=== PATIENT | male | born 1955 | race Caucasian/White ===

== ENCOUNTER → 2023-08-13 09:33 | Outpatient (REF) | payer MEDICARE, OTHER, SELFPAY ==
[2023-08-13 10:43] LABS: % Basophils 0.7 % (0-2); % Eosinophils 6.5 % (0-6); % Immature Granulocytes 0.2 % (0-0.5); % Lymphocytes 32.1 % (20.5-51.1); % Monocytes 4.6 % (1.7-9.3); % Neutrophils 55.9 % (42.2-75.2); Absolute Eosinophils 0.3 10^3/uL (0-0.7); Absolute Lymphocytes 1.4 10^3/uL (1.2-3.4); Absolute Monocytes 0.2 10^3/uL (0.1-0.6); Absolute Neutrophils 2.4 10^3/uL (1.4-6.5); Hemoglobin 13.2 g/dL (13.0-18.0); Mean Corp Hgb Conc. 34.7 g/dL (33.0-37.0); Mean Corpuscular Hgb 32.1 pg (27.0-31.0); Mean Corpuscular Volume 92.5 fL (80.0-94.0); Mean Platelet Volume 10.2 fL (7.4-10.4); Nucleated Red Blood Cells % 0 % (-); Platelet Count 158 10^3/uL (130-400); Red Blood Cell Count 4.11 10^6/uL (4.70-6.10); Red Cell Dist. Width 12.5 % (11.5-14.5); White Blood Cell Count 4.3 10^3/uL (4.8-10.8)
[2023-08-13 11:13] LABS: ALT (SGPT) 42 U/L (0-50); AST (SGOT) 31 U/L (17-59); Albumin 4.3 g/dl (3.5-5.0); Alkaline Phosphatase 64 U/L (38-126); Blood Urea Nitrogen 17 mg/dl (9-20); Calcium 9.9 mg/dl (8.4-10.2); Carbon Dioxide 29 mmol/L (22-30); Chloride 98 mmol/L (98-107); Glucose 299 mg/dl (70-99); HDL Cholesterol 40 mg/dl; LDL Cholesterol, Calculated 49 mg/dl; Potassium 5.1 mmol/L (3.5-5.1); Sodium 137 mmol/L (135-145); Total Cholesterol 134 mg/dl (50-199); Total Protein 7.2 g/dl (6.3-8.2); Triglyceride 225 mg/dl (10-149); Very Low Density Lipoprotein 45 mg/dl (0-30); eGFR > 60.00
[2023-08-13 11:28] LABS: Vitamin D, 25-OH*** 40.5 ng/mL (30-80)
[2023-08-13 11:44] LABS: TSH 1.82 uIU/ml (0.47-4.68)
[2023-08-13 12:40] LABS: Glycohemoglobin (HgbA1c) 9.6 % (4.0-5.6)
[2023-08-13 12:49] LABS: Microalbumin, Random Urine 3.3 mg/dl (0.6-1.7); Microalbumin/creatinine Ratio 12.4 mg/g
== END ==
LOC: REG 09:33
PROVIDERS: ATTENDING PHYSICIAN Family Medicine
DX: E11.65 Type 2 diabetes mellitus with hyperglycemia (principal); E11.9 Type 2 diabetes mellitus without complications; E78.00 Pure hypercholesterolemia, unspecified; R53.82 Chronic fatigue, unspecified; R26.2 Difficulty in walking, not elsewhere classified; R25.1 Tremor, unspecified; K58.9 Irritable bowel syndrome, unspecified; G62.9 Polyneuropathy, unspecified; Z79.899 Other long term (current) drug therapy; Z12.5 Encounter for screening for malignant neoplasm of prostate
CPT/HCPCS: 36415; 80053; 80061; 82043; 82306; 82570; 83036; 84443; 85025; G0103

== ENCOUNTER → 2023-11-23 08:50 | Outpatient (REF) | payer MEDICARE, OTHER, SELFPAY ==
[2023-11-23 10:09] LABS: % Basophils 0.8 % (0-2); % Eosinophils 5.9 % (0-6); % Immature Granulocytes 0.2 % (0-0.5); % Lymphocytes 26.2 % (20.5-51.1); % Monocytes 3.9 % (1.7-9.3); Absolute Eosinophils 0.3 10^3/uL (0-0.7); Absolute Lymphocytes 1.3 10^3/uL (1.2-3.4); Absolute Monocytes 0.2 10^3/uL (0.1-0.6); Absolute Neutrophils 3.1 10^3/uL (1.4-6.5); Hematocrit 38.5 % (39.0-52.0); Hemoglobin 13.2 g/dL (13.0-18.0); Mean Corp Hgb Conc. 34.3 g/dL (33.0-37.0); Mean Corpuscular Volume 93.2 fL (80.0-94.0); Mean Platelet Volume 10.5 fL (7.4-10.4); Nucleated Red Blood Cells % 0 % (-); Platelet Count 143 10^3/uL (130-400); Red Blood Cell Count 4.13 10^6/uL (4.70-6.10); Red Cell Dist. Width 12.7 % (11.5-14.5); White Blood Cell Count 4.9 10^3/uL (4.8-10.8)
[2023-11-23 10:29] LABS: Microalbumin, Random Urine 1.8 mg/dl (0.6-1.7); Microalbumin/creatinine Ratio 8.1 mg/g
[2023-11-23 10:33] LABS: INR 1.18; PT 14.8 Sec (11.4-14.6)
[2023-11-23 11:58] LABS: Glycohemoglobin (HgbA1c) 7.2 % (4.0-5.6)
[2023-11-23 12:46] LABS: AST (SGOT) 35 U/L (17-59); Albumin 4.8 g/dl (3.5-5.0); Alkaline Phosphatase 56 U/L (38-126); Blood Urea Nitrogen 19 mg/dl (9-20); Calcium 9.7 mg/dl (8.4-10.2); Carbon Dioxide 26 mmol/L (22-30); Chloride 103 mmol/L (98-107); Glucose 135 mg/dl (70-99); HDL Cholesterol 42 mg/dl; LDL Cholesterol, Calculated 33 mg/dl; Potassium 4.6 mmol/L (3.5-5.1); Sodium 143 mmol/L (135-145); Total Bilirubin 0.7 mg/dl (0.2-1.3); Total Cholesterol 110 mg/dl (50-199); Total Protein 7.8 g/dl (6.3-8.2); Triglyceride 176 mg/dl (10-149); Very Low Density Lipoprotein 35 mg/dl (0-30); eGFR > 60.00
[2023-11-23 13:23] LABS: ALT (SGPT) 45 U/L (0-50)
[2023-11-26 07:57] LABS: Viscosity Serum 1.12 cP (<=1.50)
== END ==
LOC: REG 08:50
PROVIDERS: ATTENDING PHYSICIAN Nurse Practitioner Family
DX: E11.29 Type 2 diabetes mellitus with other diabetic kidney complication (principal); E78.00 Pure hypercholesterolemia, unspecified; R80.9 Proteinuria, unspecified; Z01.89 Encounter for other specified special examinations
CPT/HCPCS: 36415; 80053; 80061; 82043; 82570; 83036; 85025; 85610; 85810

== ENCOUNTER → 2024-02-17 12:56 | Outpatient (REF) | payer MEDICARE, OTHER, SELFPAY | LOC: PAVMRI 12:56 | PROVIDERS: ATTENDING PHYSICIAN Nurse Practitioner Family; FAMILY PHYSICIAN Family Medicine | DX: M54.9 Dorsalgia, unspecified (principal); R10.9 Unspecified abdominal pain | CPT/HCPCS: 72158; 72197; A9575 ==

== ENCOUNTER 2024-04-11 05:10 | Inpatient (IN) | payer MEDICARE, OTHER, SELFPAY ==
[2024-04-10 19:54] VITALS: BP 104/65
[2024-04-10 20:12] LABS: % Basophils 0.2 % (0-2); % Eosinophils 2.5 % (0-6); % Immature Granulocytes 0.4 % (0-0.5); % Lymphocytes 10.4 % (20.5-51.1); % Monocytes 4.1 % (1.7-9.3); % Neutrophils 82.4 % (42.2-75.2); Absolute Eosinophils 0.3 10^3/uL (0-0.7); Absolute Immature Granulocytes 0.1 10^3/uL (0-0.05); Absolute Lymphocytes 1.4 10^3/uL (1.2-3.4); Absolute Monocytes 0.5 10^3/uL (0.1-0.6); Absolute Neutrophils 10.9 10^3/uL (1.4-6.5); Hematocrit 35.1 % (39.0-52.0); Hemoglobin 12.6 g/dL (13.0-18.0); Mean Corp Hgb Conc. 35.9 g/dL (33.0-37.0); Mean Corpuscular Hgb 32.2 pg (27.0-31.0); Mean Corpuscular Volume 89.8 fL (80.0-94.0); Mean Platelet Volume 9.7 fL (7.4-10.4); Nucleated Red Blood Cells % 0 % (-); Platelet Count 168 10^3/uL (130-400); Red Blood Cell Count 3.91 10^6/uL (4.70-6.10); Red Cell Dist. Width 12.9 % (11.5-14.5); White Blood Cell Count 13.2 10^3/uL (4.8-10.8)
[2024-04-10 20:25] LABS: Lactic Acid 1.3 mmol/L (0.7-2.0)
[2024-04-10 20:34] LABS: ALT (SGPT) 41 U/L (0-50); AST (SGOT) 23 U/L (17-59); Albumin 4.6 g/dl (3.5-5.0); Alkaline Phosphatase 55 U/L (38-126); Blood Urea Nitrogen 18 mg/dl (9-20); Calcium 9.6 mg/dl (8.4-10.2); Carbon Dioxide 31 mmol/L (22-30); Chloride 97 mmol/L (98-107); Glucose 148 mg/dl (70-99); Lipase 803 U/L (23-300); Potassium 4.3 mmol/L (3.5-5.1); Sodium 141 mmol/L (135-145); Total Bilirubin 0.9 mg/dl (0.2-1.3); Total Protein 7.4 g/dl (6.3-8.2); eGFR > 60.00
[2024-04-10 20:37] LABS: Troponin I < 0.012 ng/ml
--- NOTE | 2024-04-10 23:32 | ED.GENMED ---
History of Present Illness
General
Chief Complaint: Musculo-Skeletal Complaint
Time Seen by Provider: 04/10/24 23:32
History of Present Illness
History of Present Illness:
TIME OF INITIAL ENCOUNTER: 11:40 PM
HPI: The patient presents due to left-sided abdominal pain. It worsens when he gets up and moves around. He has no significant pain when he is he is resting here. He has no chest pain. He has no epigastric pain. He has had no vomiting and is
not a drinker.
EXAM:
GENERAL: Appears somewhat weak but in no distress
HEENT: Moist oral mucosa
CARDIOVASCULAR: No murmurs, normal heart rate, regular rhythm, No chest wall tenderness
PULMONARY: No respiratory distress, breath sounds are clear and equal
ABDOMEN: Soft with no peritoneal signs, there is severe tenderness on the left side tenderness
NEUROLOGIC: Excellent strength all extremities, no coordination deficits
PSYCHIATRIC: Appropriate mental status, normal insight and judgement
EXTREMITIES: Nontender, no edema, moves all extremities equally
SKIN: No rash, no lesions
NUMBER AND COMPLEXITY OF PROBLEMS ADDRESSED AT THE ENCOUNTER
� Chronic conditions affecting care: High blood pressure, hyperlipidemia, diverticular disease, diabetes
� Acute Exacerbation and/or Progression of Chronic Illness: This is an acute problem
� Differential Diagnosis includes: Diverticulitis, bowel obstruction, bowel perforation, oblique muscle strain
AMOUNT AND/OR COMPLEXITY OF DATA TO BE REVIEWED AND ANALYZED
� I performed an independent evaluation of and my interpretation is:
EKG:
CT: I personally reviewed CT imaging and agree with radiologist interpretation that there is acute diverticulitis of the descending colon with no evidence of abscess or microperforation
X-rays: Chest and rib x-ray unremarkable
Laboratory Studies: White count 13.2, hemoglobin 12.6, chemistries relatively unremarkable, troponin negative, lipase is 83
Other:
� Review of other/old records: The patient was seen in the emergency department in December 18 with diarrhea
� Clinical information was obtained by an independent historian: I spoke to at bedside
� Prescriptions/Medications Considered but not given:
� Further testing considered but not performed:
RISK OF COMPLICATIONS AND/OR MORBIDITY OR MORTALITY OF PATIENT MANAGEMENT
� Social determinants of health affecting care: Lives at home
� Discussion with other providers:
� Escalation of care including admission/observation vs risk of discharge considered: The patient has no significant pain at rest and appears very comfortable however only with palpation does he have rather significant
tenderness. Therefore, CT imaging obtained which confirms diverticulitis.
ANY OTHER UPDATES:
1:30 AM: The patient's CT confirms diverticulitis however the last 2 blood pressures have been low�IV fluids are started. Of note the patient states that he had constipation and then took magnesium citrate and then started having diarrhea. He is
on antihypertensive (lisinopril) and has increased amount of fluid noted in the intestinal lumen/has had diarrhea�likely had hypovolemic component as well.
2 AM: BP remains low however he is mentating well and is not ill-appearing. He wanted to go home however repeat blood pressure 81 systolic. I then checked a manual pressure and is confirmed to be around 80 systolic. Second liter of fluid has been
ordered. Will need to hold the lisinopril for now and I am starting IV antibiotics. CT imaging personally reviewed and shows a relatively short segment of involved bowel with no complication
Past History
Past History
ED Past Medical History: Hypercholesterolemia, NIDDM and Other (IBS)
ED Past Surgical History: Other (hernia)
Social History
Tobacco: Former smoker
Alcohol: Occasional
Living: with family
Phy Exam
Physical Exam
Physical Exam:
See HPI
Course
Orders/Labs/Results
Orders:
Orders
04/10/24 19:56
Electrocardiogram (*1) Urgent
Reason for Study: Abdominal Pain
CR Ribs-left 3 Vw W/pa Chest Urgent
Comment:
Reason For Exam: rib pain
04/10/24 19:57
EKG- Treatment ONCE
04/10/24 20:05
Complete Blood Count/With Diff Urgent
Comprehensive Metabolic Panel Urgent
Lactic Acid Urgent
Lipase Urgent
Troponin I Urgent
04/11/24 00:30
CT Abd/pelvis W Iv Cont Urgent
Reason For Exam: severe L abd tender; wbc 13
04/11/24 01:31
0.9% Sodium Chloride 1000 ml [Nss] 1,000 ml IV BOLUS
04/11/24 02:05
0.9% Sodium Chloride 1000 ml [Nss] 1,000 ml IV BOLUS
Piperacillin/Tazo 3.375 Gram [Zosyn] 3.375 gram in 50 ml IV NOW
Abnormal Lab Results
04/10/24
20:05
WBC 13.2 H 10^3/uL
(4.8-10.8)
RBC 3.91 L 10^6/uL
(4.70-6.10)
Hgb 12.6 L g/dL
(13.0-18.0)
Hct 35.1 L %
(39.0-52.0)
MCH 32.2 H pg
(27.0-31.0)
Abs Immat Gran (auto) 0.1 H 10^3/uL
(0-0.05)
Absolute Neuts (auto) 10.9 H 10^3/uL
(1.4-6.5)
Neutrophils % 82.4 H %
(42.2-75.2)
Lymphocytes % 10.4 L %
(20.5-51.1)
Chloride 97 L mmol/L
(98-107)
Carbon Dioxide 31 H mmol/L
(22-30)
Glucose 148 H mg/dl
(70-99)
Lipase 803 H U/L
(23-300)
04/10/24 20:05
10/14/24 20:05
Vital Signs
Initial and Last Documented VS:
Initial Vital Signs
Temp Pulse Resp BP Pulse Ox
98.3 F 93 20 104/65 99
04/10/24 19:54 04/10/24 19:54 04/10/24 19:54 04/10/24 19:54 04/10/24 19:54
Last Documented Vital Signs
Temp Pulse Resp BP Pulse Ox
98.3 F 93 20 81/54 98
04/10/24 19:54 04/10/24 19:54 04/10/24 19:54 04/11/24 01:58 04/11/24 02:00
*Critical Care Note
Total Time (30-74mins, 75-104mins- exclusive of procedures): Not Applicable
ED Attending Note
-
Portions of this chart may have been created with voice recognition software.� Occasional wrong word or��sound alike� substitutions may have occurred due to the inherent limitations of voice recognition software.
Discharge Plan
Departure
Patient Disposition: Admit
Date of Disposition: 04/11/24
Time of Disposition: 02:04
Presentation/result/management discussed w/ accepting MD/DO: Hospitalist
Discharge Problem:
Diverticulitis
Prescriptions:
No Action
glipizide 10 MG tablet
5 mg PO BID
sertraline 100 MG tablet
200 mg PO DAILY
trazodone 100 MG tablet
100 mg PO HS
lisinopril 5 MG tablet
5 mg PO DAILY
diazepam 10 MG tablet
5 mg PO BID
Metformin HCl
500 mg PO BID
atorvastatin 80 mg Tablet
80 mg PO DAILY
bupropion HCl 100 mg Tablet
100 mg PO DAILY
Referrals:
Torey Rodríguez DO [Family Provider] -
Interventions
Interventions:
*Risk Screen - Suicide Last Done: 04/11/24 00:01
*General Assessment Last Done: 04/10/24 19:54
*Neglect/Abuse Screening Last Done: 04/11/24 00:01
ED- Fall Risk Assessment Last Done: 04/11/24 00:08
*ED COVID-19 Vaccine History Last Done: 04/11/24 00:01
Discharge Date and Time
Print Language: THAI
[2024-04-11] VITALS (55 sets, daily range): BP systolic 71–126; BP diastolic 45–80; BMI 24.2; BMI 24.5
[2024-04-11] MEDS: NSS 1000 IV ×3 (01:32→03:10)
--- NOTE | 2024-04-11 01:35 | EDRN ---
Patients BP is trending down, Dr. Pérez at bedside with patient going over results and assessing, fluids started on patient, going to re-assess patient after fluids.
[2024-04-11] MEDS: ZOSYN 50 IV ×4 (02:08→20:20)
--- NOTE | 2024-04-11 03:11 | EDRN ---
After 2 liters of normal saline patients BP continues to be low, spoke provider, more fluids ordered and started on patient, patient is waiting on admission.
--- NOTE | 2024-04-11 04:00 | EDRN ---
3rd liter completed, patient's blood pressure remains the same, patient reports other then being tired feels ok, MD aware, waiting on hospitalist to see and admit patient. Patient with no symptoms with low BP, will continue to monitor closely.
--- NOTE | 2024-04-11 05:11 | EDRN ---
Hospitalist at bedside working on admission order
--- NOTE | 2024-04-11 05:26 | HPS.HSE ---
Family Physician
-
Family Physician: oTrey Rodríguez
Chief Complaint
-
Abdominal pain and diarrhea
History of Present Illness
This is a 69-year-old male with past medical history of diabetes, hypertension, hyperlipidemia, depression and anxiety who presents to the emergency department with approximately 1 day history of left lower quadrant abdominal pain and an episode of
watery stool.
Patient reports symptoms began after dinner over 24 hours ago. He sat down and noticed sharp pointed left lower quadrant pain. He managed the pain overnight. The following morning he felt constipated with some association with the pain. Later on
he did take mag citrate and significant to loose stools throughout the day but was tolerating some po. The pain continued afterwards. He denied having any fevers or chills. He denied any nausea or vomiting.
Patient denies any urinary symptoms. He has a history of a strangulated hernia status post release many many years ago. He denies abdominal distention or bloating.
In the emergency department initially the patient was afebrile, hematin blood pressure of 104/60 and nontachycardic. Soon after evaluation in the ED prior to discharge his blood pressure dropped to 80s systolic. He is maintained at 80 systolic for
a while. The patient who had no new symptoms. EKG showed normal sinus rhythm without any acute ST or T wave changes. His troponin was negative. Chest x-ray shows no acute infiltrates. He did have a CT scan of the abdomen pelvis which showed
acute descending colonic diverticulitis without any fluid collection abscess or microperforation. Patient had leukocytosis to 13,000 with normal hemoglobin and platelet count. His electrolytes were mostly normal. His troponin was negative. LFTs
were unremarkable. Lipase was elevated at 803.
The patient was given 3 L normal saline boluses to maintain his blood pressure. Currently blood pressures are 100/60.
Medical History
Past Medical History
Past Medical History: Reports HTN, Hypercholesterolemia, NIDDM and Psychiatric
Additional Past Medical History:
DES on CPAP
Past Surgical History: Reports Other
Additional Past Surgical History:
Ex lap for strangulated hernia, no resection, had manual reduction.
Social History
Tobacco: Non-smoker
Alcohol: None
Drug: None
Personal:
Living: With Family
Family History
Family History: Not pertinent
Allergies / Home Medications
Allergies reflects when Allergies were last updated in [employer].
Home Medications with original date entered in [employer]
Allergy/Medication List:
Allergies
Allergy/AdvReac Type Severity Reaction Status Date / Time
No Known Allergies Allergy Verified 04/10/24 19:53
Home Medications
diazepam 10 mg tablet 5 mg PO BID 05/12/17
glipizide 10 mg tablet 5 mg PO BID 05/12/17
lisinopril 5 mg tablet 5 mg PO DAILY 05/12/17
sertraline 100 mg tablet 200 mg PO DAILY 05/12/17
trazodone 100 mg tablet 100 mg PO HS 05/12/17
Metformin HCl 500 mg PO BID 11/21/17
atorvastatin 80 mg tablet 80 mg PO DAILY 04/11/24
bupropion HCl 100 mg tablet 100 mg PO DAILY 04/11/24
Review of Systems
-
History Source: Patient
Constitutional: Reports No Symptoms
EENT: Reports No Symptoms
Respiratory: Reports No Symptoms
Cardiac: Reports No Symptoms
Abdomen/GI: Reports Abdominal Pain and Diarrhea
: Reports No Symptoms
Musculoskeletal: Reports No Symptoms
Skin: Reports No Symptoms
Neurological: Reports No Symptoms
Hematologic/Lymphatic: Reports No Symptoms
Psych: Reports No Symptoms
Physical Exam
Vital Signs
Vital Signs
Temp Pulse Resp BP Pulse Ox
97.8 F 69 21 100/62 99
04/11/24 04:00 04/11/24 05:15 04/11/24 05:15 04/11/24 05:15 04/11/24 05:15
Physical Exam
General: Well Developed, Well Nourished and No Apparent Distress
HEENT: NormoCephalic, Anicteric, Moist mucous membranes and Atraumatic
Respiratory: Clear
Cardiac: S1/S2 and Regular Rhythm
Breast: Deferred by me
GI: Soft and Tender (Left lower quadrant tenderness to palpation, no rebound or guarding.)
Rectal: Deferred by Provider
Genito-urinary: Deferred by me
Musculoskeletal: No Clubbing, No Cyanosis and No Edema
Skin: Warm
Neuro: AO x 3
Hematologic/Lymphatic: No Lymphadenopathy
Psych: Calm
Laboratory Results
-
04/10/24 20:05
04/10/24 20:05
Laboratory Results
Lactic Acid 1.3 mmol/L (0.7-2.0) 04/10/24 20:05
Total Bilirubin 0.9 mg/dl (0.2-1.3) 04/10/24 20:05
AST 23 U/L (17-59) 04/10/24 20:05
ALT 41 U/L (0-50) 04/10/24 20:05
Alkaline Phosphatase 55 U/L (38-126) 04/10/24 20:05
Troponin I < 0.012 ng/ml 04/10/24 20:05
Lipase 803 U/L (23-300) H 04/10/24 20:05
Data Reviewed
-
Diagnostic Radiology: Image Personally Visualized and interpreted
CT Scan: Report Reviewed by me
Medical Tests (Nuc Med, Echo, EKG etc): Image Personally Visualized and interpreted
Lab Data: Labs Reviewed by me
Old Records: Reviewed
Impression/Plan
-
IMPRESSION:
Patient with history of hypertension, diabetes, hyperlipidemia DES on CPAP who presented to Emergency Department with 1 day history of left lower quadrant abdominal pain and was found to have uncomplicated acute diverticulitis of the descending
colon. While in the ED patient became hypotensive requiring fluid resuscitation with crystalloids. Currently BP stable at 100/60 and patient is asymptomatic. Due to a hypotensive episode the clinical picture is more complicated and patient cannot
be discharged since there is a possibility of bacteremia and sepsis. He is lactic acid was within normal limits.
PLAN:
Acute diverticulitis -by CT scan uncomplicated diverticulitis of the descending colon, by clinical exam diverticulitis associated with sepsis.
-Admit to IMU
-Status post 30 mL/kg IV fluids
-Zosyn
-Clear liquid for now, advance as tolerated
-Continue IV fluids as the patient may have been dehydrated over the last 24 hrs due to his laxative use.
HTN
-Holding lisinopril until patient has blood pressure is stabilized
DM II
-Hold metformin x 48 hours
-Holding glipizide
-Insulin sliding scale ACHS
DES
- CPAP HS
DVT PPX - lovenox sq
Code Status - Full Code
[2024-04-11] MEDS: LR 1000 IV ×2 (06:29→17:53)
--- NOTE | 2024-04-11 07:01 | EDRN ---
Patient ambulated to the restroom and back and bed, denies any dizziness and feels well, resting comfortably in bed.
[2024-04-11] MEDS: ZOLOFT 200 MG PO (08:31)
[2024-04-11] MEDS: LIPITOR 80 MG PO (08:31)
[2024-04-11] MEDS: WELLBUTRIN REGULAR RELEASE 100 MG PO (08:32)
[2024-04-11 09:10] LABS: Glucose - Point of Care 192 mg/dl (70-99)
[2024-04-11] MEDS: NOVOLOG FLEXPEN-LOW RESISTANCE 1 UNITS SC ×3 (09:34→18:28)
[2024-04-11 13:21] LABS: Glucose - Point of Care 173 mg/dl (70-99)
[2024-04-11] MEDS: LOVENOX 40 MG SC (17:58)
[2024-04-11 18:38] LABS: Glucose - Point of Care 164 mg/dl (70-99)
[2024-04-11] MEDS: DESYREL 100 MG PO (20:20)
[2024-04-11 21:56] LABS: Glucose - Point of Care 272 mg/dl (70-99)
--- NOTE | 2024-04-11 22:27 | PTCARENOTE ---
Caring for patient overnight. aaox3, NSR/SB on monitor. Remains RA. C/o pain in LLQ when palpitated. pt states he is feeling a lot better than when he first came in and his abdominal pain has gotten better. BP's & MAP's stable at the moment. IVF
&IVABX. Will continue to monitor.
[2024-04-12] VITALS (13 sets, daily range): BP systolic 90–128; BP diastolic 52–94; PULSE 38–59
[2024-04-12] MEDS: ZOSYN 50 IV ×4 (01:55→19:29)
[2024-04-12] MEDS: LR 1000 IV (03:45)
--- NOTE | 2024-04-12 04:07 | DOWNTIME ---
There was a [employer] Downtime on 04/12/2024 from 0100 to 04/12/2024 at 0355. Downtime documentation of patient's care, including medication administrations, has been reconciled in the electronic record per guidelines. Refer to the
patient's paper chart under the miscellaneous tab to see printed paper medication records and downtime forms.
[2024-04-12 05:55] LABS: Hematocrit 29.1 % (39.0-52.0); Hemoglobin 10.1 g/dL (13.0-18.0); Mean Corp Hgb Conc. 34.7 g/dL (33.0-37.0); Mean Corpuscular Hgb 32.1 pg (27.0-31.0); Mean Corpuscular Volume 92.4 fL (80.0-94.0); Mean Platelet Volume 10.9 fL (7.4-10.4); Platelet Count 103 10^3/uL (130-400); Red Blood Cell Count 3.15 10^6/uL (4.70-6.10); Red Cell Dist. Width 12.9 % (11.5-14.5); White Blood Cell Count 4.6 10^3/uL (4.8-10.8)
[2024-04-12 07:12] LABS: Blood Urea Nitrogen 8 mg/dl (9-20); Calcium 8.5 mg/dl (8.4-10.2); Carbon Dioxide 30 mmol/L (22-30); Chloride 103 mmol/L (98-107); Estimated Creatinine Clearance 109 ml/min; Glucose 166 mg/dl (70-99); Potassium 4.1 mmol/L (3.5-5.1); Sodium 140 mmol/L (135-145); eGFR > 60.00
[2024-04-12 08:21] LABS: Glucose - Point of Care 178 mg/dl (70-99)
--- NOTE | 2024-04-12 09:11 | W.PN.HOSP.TC ---
Today's Communication/Plan
-
resume diabetic medication
valium 2.5mg x1 in am
stop IVF
LR diet
Assessment / Plan
Assessment / Plan
CT a/p
CT findings compatible with diverticulitis involving the superior to mid aspect of the descending colon. No evidence for abscess or free intraperitoneal air.
Moderate amount of fluid within the colon, and please correlate with any symptoms of diarrhea.
Normal appearance of the appendix.
Contracted gallbladder with no evidence for gallstones or biliary ductal dilation.
Calcification involving the right coronary artery. Please correlate with symptoms of and risk factors for coronary artery disease, with further workup as clinically appropriate.
Acute left sided diverticulitis
Sepsis
-Patient had leukocytosis/hypotension at admission
-CT a/p showing left sided diverticulitis
-Got 30ml/kg fluid bolus and maintenance IVF after that, can stop today
-patient on zosyn, continue.
-advance diet to LR diet today
Hypotension
Essential HTN
-hold BP medication
-check ortho vitals
-continues to have some low BP reading
DM II
-can resume oral meds back today
-Insulin sliding scale ACHS
DES
-CPAP HS
Depression/axniety
Tinnitus
-patient was weaned off valium 5mg BID by psychiatry but needed to be put back on for sev tinnitus
-give 2.5mg valium in AM today and monitor patient
-will need to resume back to avoid withdrawal
DVT PPX - Lovenox sq
Code Status - Full Code
Transfer tele.
Anticipated Discharge: 24 - 48 hours
Subjective/Interval History
-
Date of Service: April 12, 2024
abdominal pain is better
no n/v
afebrile overnight
Objective Data
-
Labs:
Laboratory Results
04/12/24
05:07
WBC 4.6 L
Hgb 10.1 L
Hct 29.1 L
Plt Count 103 L D
Sodium 140
Potassium 4.1
Chloride 103
Carbon Dioxide 30
BUN 8 L
Creatinine 0.7
Glucose 166 H
Calcium 8.5
Vital Signs:
Vital Signs
Temp Pulse Resp BP Pulse Ox
97.9 F 49 14 90/66 97
04/12/24 07:40 04/12/24 06:00 04/12/24 06:00 04/12/24 06:00 04/12/24 06:00
Review of Systems
-
Respiratory: Reports No Symptoms
Cardiac: Reports No Symptoms
Abdomen/GI: Reports Abdominal Pain; Denies Nausea or Vomiting
Physical Exam
-
General: No Apparent Distress and Comfortable
HEENT: Negative Oxygen
Respiratory: Clear to Auscultation
Cardiac: Regular Rhythm and S1/S2; Negative Murmur or Rub
GI: Soft, Nondistended and Tender (Left flank abd pain)
Musculoskeletal: No Edema
Neuro: Awake, Alert, Oriented, No Motor Deficits and Nonfocal/Grossly Intact
Psych: Calm
[2024-04-12] MEDS: COLACE 100 MG PO ×2 (10:07→19:29)
[2024-04-12] MEDS: LIPITOR 80 MG PO (10:07)
[2024-04-12] MEDS: ZOLOFT 200 MG PO (10:07)
[2024-04-12] MEDS: NOVOLOG FLEXPEN-LOW RESISTANCE 1 UNITS SC (10:08)
[2024-04-12] MEDS: VALIUM 2.5 MG PO (10:12)
[2024-04-12 10:21] LABS: Glycohemoglobin (HgbA1c) 6.8 % (4.0-5.6)
[2024-04-12] MEDS: WELLBUTRIN REGULAR RELEASE 100 MG PO (10:46)
[2024-04-12 12:31] LABS: Glucose - Point of Care 208 mg/dl (70-99)
[2024-04-12] MEDS: NOVOLOG FLEXPEN-LOW RESISTANCE 2 UNITS SC ×2 (12:44→18:03)
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
[2024-04-12 17:25] LABS: Glucose - Point of Care 213 mg/dl (70-99)
[2024-04-12] MEDS: GLUCOTROL 5 MG PO (18:03)
[2024-04-12] MEDS: LOVENOX 40 MG SC (18:03)
[2024-04-12] MEDS: GLUCOPHAGE 500 MG PO (18:03)
--- NOTE | 2024-04-12 18:19 | PTCARENOTE ---
Rec'd pt this AM. resting comfortably. reports pain is greatly improved and tolerating diet today. remains sinus douglas when resting, asymptotic. resting comfortably.
[2024-04-12] MEDS: DESYREL 100 MG PO (19:29)
[2024-04-12] MEDS: VALIUM 5 MG PO (19:29)
[2024-04-12 22:51] LABS: Glucose - Point of Care 118 mg/dl (70-99)
[2024-04-13] VITALS: BP 104/61
[2024-04-13] MEDS: ZOSYN 50 IV ×2 (01:56→09:16)
[2024-04-13 04:30] LABS: Hematocrit 31.1 % (39.0-52.0); Mean Corp Hgb Conc. 35.4 g/dL (33.0-37.0); Mean Corpuscular Hgb 33.1 pg (27.0-31.0); Mean Corpuscular Volume 93.7 fL (80.0-94.0); Mean Platelet Volume 10.7 fL (7.4-10.4); Platelet Count 102 10^3/uL (130-400); Red Blood Cell Count 3.32 10^6/uL (4.70-6.10); Red Cell Dist. Width 12.7 % (11.5-14.5); White Blood Cell Count 4.8 10^3/uL (4.8-10.8)
[2024-04-13 04:49] LABS: Blood Urea Nitrogen 9 mg/dl (9-20); Calcium 8.9 mg/dl (8.4-10.2); Carbon Dioxide 28 mmol/L (22-30); Chloride 105 mmol/L (98-107); Estimated Creatinine Clearance 109 ml/min; Glucose 124 mg/dl (70-99); Potassium 4.1 mmol/L (3.5-5.1); Sodium 140 mmol/L (135-145); eGFR > 60.00
[2024-04-13 04:56] VITALS: BP 106/49
--- NOTE | 2024-04-13 04:57 | PTCARENOTE ---
NO acute events overnight. Denies pain. Remains on IV abx.
[2024-04-13 08:00] VITALS: BP 118/64
[2024-04-13 09:03] LABS: Glucose - Point of Care 160 mg/dl (70-99)
[2024-04-13] MEDS: COLACE 100 MG PO (09:16)
[2024-04-13] MEDS: VALIUM 5 MG PO (09:16)
[2024-04-13] MEDS: GLUCOTROL 5 MG PO (09:16)
[2024-04-13] MEDS: LIPITOR 80 MG PO (09:16)
[2024-04-13] MEDS: GLUCOPHAGE 500 MG PO (09:16)
[2024-04-13] MEDS: ZOLOFT 200 MG PO (09:16)
[2024-04-13] MEDS: WELLBUTRIN REGULAR RELEASE 100 MG PO (09:16)
[2024-04-13] MEDS: NOVOLOG FLEXPEN-LOW RESISTANCE 1 UNITS SC (09:17)
--- NOTE | 2024-04-13 09:21 | W.PN.HOSP.TC ---
Today's Communication/Plan
-
d/c home
Assessment / Plan
Assessment / Plan
CT a/p
CT findings compatible with diverticulitis involving the superior to mid aspect of the descending colon. No evidence for abscess or free intraperitoneal air.
Moderate amount of fluid within the colon, and please correlate with any symptoms of diarrhea.
Normal appearance of the appendix.
Contracted gallbladder with no evidence for gallstones or biliary ductal dilation.
Calcification involving the right coronary artery. Please correlate with symptoms of and risk factors for coronary artery disease, with further workup as clinically appropriate.
Acute left sided diverticulitis
Sepsis
-Patient had leukocytosis/hypotension at admission
-CT a/p showing left sided diverticulitis
-Got 30ml/kg fluid bolus and maintenance IVF after that, can stop today
-Patient tolerated a low residue diet without any issues
-Transition patient to oral Augmentin for 7 more days at discharge
-Advised patient to follow-up with gastroenterology in office for colonoscopy
Hypotension
Essential HTN
-Blood pressure improved, okay to resume lisinopril at discharge
DM II
-Discharge patient on home regimen of diabetic medication
DES
-CPAP HS
Depression/axniety
Tinnitus
-patient was weaned off valium 5mg BID by psychiatry but needed to be put back on for sev tinnitus
-Patient tolerating Valium 5 mg twice daily without any problem
DVT PPX - Lovenox sq
Code Status - Full Code
More than 30 minutes spent in discharge including
Final examination of the patient
Summarizing hospital stay
Instructions for continuing care to all relevant caregivers
Preparation of discharge records, prescriptions, and referral forms
Total time spent (in minutes): 38 mins
Anticipated Discharge: Today
Subjective/Interval History
-
Date of Service: April 13, 2024
Abdominal pain is significantly improved
No nausea vomiting
Continues to have some episodic bradycardia, asymptomatic
Objective Data
-
Labs:
Laboratory Results
04/13/24
04:02
WBC 4.8
Hgb 11.0 L
Hct 31.1 L
Plt Count 102 L
Sodium 140
Potassium 4.1
Chloride 105
Carbon Dioxide 28
BUN 9
Creatinine 0.7
Glucose 124 H
Calcium 8.9
Vital Signs:
Vital Signs
Temp Pulse Resp BP Pulse Ox
98.6 F 44 12 106/49 97
04/13/24 07:31 04/13/24 06:00 04/12/24 12:00 04/13/24 04:56 04/13/24 06:00
I&O
04/12/24 04/13/24 04/14/24
06:59 06:59 06:59
Intake Total 100 / 100
Output Total 650 / 650
Balance -550 / -550
Review of Systems
-
Respiratory: Reports No Symptoms
Cardiac: Reports No Symptoms
Abdomen/GI: Reports No Symptoms
Physical Exam
-
General: No Apparent Distress and Comfortable
HEENT: Negative Oxygen
Respiratory: Clear to Auscultation
Cardiac: Regular Rhythm and S1/S2; Negative Murmur or Rub
GI: Soft, Nontender and Nondistended
Musculoskeletal: No Edema
Neuro: Awake, Alert, Oriented, No Motor Deficits and Nonfocal/Grossly Intact
Psych: Calm
--- NOTE | 2024-04-13 09:23 | W.DCSUMMARY ---
Discharge Summary
Discharge Data
Date of Admission: 04/11/24
Date of Discharge: 04/13/24
-
Pending Results: No
Hospital Course
Discharging Physician : Dr David Garces
Disposition : Home
Primary care physician : Dr Torey rodríguez
Principal Discharge diagnosis :
Acute descending colon diverticulitis
Sinus bradycardia
Hypotension
Chronic Discharge diagnosis :
Depression/anxiety
Essential hypertension
Hyperlipidemia
Tinnitus
Hospital Course :
Patient is a 69-year-old male with no mentioned past medical history came to ER with new onset of left flank and lower abdominal pain. On evaluation in ER patient was diagnosed to have descending colon diverticulitis based on CT abdomen pelvis.
Patient was not showing any sign of systemic sepsis initially and was planned to be discharged to home on oral antibiotics. Unfortunately patient developed episodes of hypotension and required to be given IV fluid boluses. Patient was started on
IV antibiotics and was admitted to hospital for further monitoring. Over next 48 hours patient abdominal pain resolved completely. No new issues develop. Patient continues to have episodic hypotension although blood pressure significantly
improved, patient is being resumed on small dose of lisinopril at discharge. Patient also have sinus bradycardia with heart rate going to 40s although remains asymptomatic. Patient was advised to establish care with cardiology for possible
evaluation of need of outpatient rhythm monitoring.
Patient to follow-up with gastroenterology in office as well as may require repeat colonoscopy. Post medical stabilization patient was discharged to home at this point.
Important imaging findings :
CT abd/pelvis
CT findings compatible with diverticulitis involving the superior to mid aspect of the descending colon. No evidence for abscess or free intraperitoneal air.
Moderate amount of fluid within the colon, and please correlate with any symptoms of diarrhea.
Normal appearance of the appendix.
Contracted gallbladder with no evidence for gallstones or biliary ductal dilation.
Calcification involving the right coronary artery. Please correlate with symptoms of and risk factors for coronary artery disease, with further workup as clinically appropriate.
Procedure findings :
None
Discharge Plan
-
Patient Disposition: Home (Routine Discharge)
Discharge Diagnosis/Procedures: Acute descending colon diverticulitis, Sinus bradycardia
Condition: Fair
Diet: Low Residue
Activity: As tolerated
Driving Restrictions: As prior to admission
Bathing Restrictions: OK to Shower
Activity Restrictions/Additional Instructions:
Please establish care with cardiology of choice for further evaluation of sinus bradycardia.
Please follow-up with your regular drill foreman in 4 to 6 weeks for consideration of repeat colonoscopy.
Referrals:
Torey Rodríguez, DO [Family Provider] - in one week
Prescriptions:
New
amoxicillin-pot clavulanate 875-125 mg tablet
1 tab PO BID Qty: 14 0RF
Continued
sertraline 100 MG tablet
200 mg PO DAILY
trazodone 100 MG tablet
100 mg PO HS
lisinopril 5 MG tablet
5 mg PO DAILY
diazepam 10 MG tablet
5 mg PO BID
metformin 500 mg Tablet
500 mg PO BID Qty: 0
atorvastatin 80 mg Tablet
80 mg PO QPM
cyanocobalamin (vitamin B-12) 1,000 mcg Tablet
1,000 mcg PO DAILY
bupropion HCl 100 mg Tablet Sustained-Release 12 Hr
100 mg PO DAILY
glipizide 5 mg Tablet
5 mg PO BID
Discharge Orders:
Discharge Patient (As Directed); Ordered 04/13/24
Ordered By: David Garces
Discharge Date and Time
Print Language: AUSTRIAN
--- NOTE | 2024-04-13 11:55 | PTCARENOTE ---
Pt for d/c home. Declined Pna vaccine. IV and tele monitor removed. Instructions and med list reviewed with pt and . Pt ambulated off unit with .
== END 2024-04-13 12:12 | disposition home or self-care (01) | DRG 872 ==
LOC: IMU 05:10
PROVIDERS: Emergency Medicine; ADMITTING PHYSICIAN Internal Medicine; ATTENDING PHYSICIAN Hospitalist; EMERGENCY PHYSICIAN Emergency Medicine; FAMILY PHYSICIAN Family Medicine
DX: A41.9 Sepsis, unspecified organism (principal); K57.32 Diverticulitis of large intestine without perforation or abscess without bleeding; I10 Essential (primary) hypertension; E11.9 Type 2 diabetes mellitus without complications; G47.33 Obstructive sleep apnea (adult) (pediatric); I95.9 Hypotension, unspecified; F41.9 Anxiety disorder, unspecified; F32.A Depression, unspecified; E78.00 Pure hypercholesterolemia, unspecified
CPT/HCPCS: 71101; 74177; 80048; 80053; 82962; 83036; 83605; 83690; 84484; 85025; 85027; 93005; 94660; 96361; 96365; 99285; Q9967

== ENCOUNTER 2024-09-12 10:12 | Emergency (ER) | payer MEDICARE, OTHER, SELFPAY ==
[2024-09-12] VITALS (11 sets, daily range): BP systolic 99–124; BP diastolic 60–80; PULSE 60–86; BMI 23.3
--- NOTE | 2024-09-12 11:01 | ED.GENMED ---
History of Present Illness
<Adore Miranda PA-C - Last Filed: 09/13/24 14:04>
General
Chief Complaint: Fainting/Passed Out
Source: patient and spouse
Exam Limitations: none
Time Seen by Provider: 09/12/24 10:36
History of Present Illness
History of Present Illness:
69yoM with a history of hypertension, hyperlipidemia, type 2 diabetes presenting with his for evaluation after syncopal episode 2 days ago. Patient was standing on a ladder painting 2 days ago when he lost consciousness. Patient does not
recall any preceding symptoms or dizziness. He states the first that he remembers is waking up in mid air while falling. He believes he lost his balance because he has been having intermittent balance issues recently in which he stumbles while
walking. Patient fell approximately 3 feet onto his buttocks and subsequently hit his head. Since the fall, patient has not been feeling right. He states it feels like he is in the clouds and that his head is detached from his body. He denies
any chest pain, shortness of breath, vomiting, diarrhea, fevers, focal weakness, paresthesias.
Past History
<Adore Miranda PA-C - Last Filed: 09/13/24 14:04>
Past History
ED Past Medical History: Hypercholesterolemia, NIDDM and Other (IBS)
ED Past Surgical History: Other (hernia)
Social History
Tobacco: Former smoker
Alcohol: Occasional
Living: with family
Phy Exam
<Adore Miranda PA-C - Last Filed: 09/13/24 14:04>
General Physical Exam
General Presentation: well appearing and no apparent distress
General age: appears stated age
General Skin: warm and dry
General Habitus: normal
General Mental: alert
ENT Exam
ENT Exam: normocephalic
Eye Exam
Eye Exam: PERRL and EOMI
Cardiovascular Exam
Cardiovascular Exam: regular rate/rhythm and no murmur
Pulmonary Exam
Pulmonary Exam: lungs clear, no respiratory distress, no rales, no crackles and no rhonchi
Neurological Exam
Neurological Exam: alert and other (PERRL. EOMs intact. Normal finger to nose and heel to ramirez bilaterally. )
[place] Coma Scale
Eye Opening: Spontaneous
Verbal Response: Oriented
Motor Response: Obeys Commands
GCS Total Score: 15
Skin Exam
Skin Exam: normal color and warm/dry
Psychiatric Exam
Psychiatric Exam: normal mood/affect
<Jose Garcia PA-C - Last Filed: 09/12/24 18:57>
[place] Coma Scale
GCS Total Score: 15
Course
<Adore Miranda PA-C - Last Filed: 09/13/24 14:04>
Orders/Labs/Results
Orders:
Orders
09/12/24 10:16
ECG [Electrocardiogram (*1)] Urgent
Reason for Study: Syncope
EKG- Treatment ONCE
09/12/24 10:58
CT Cervical Spine W/o Iv Contr Urgent
Comment:
Reason For Exam: fall, neck pain
Cardiac Monitoring- Treatment ONCE
CR Sacrum/coccyx Min 2 View Urgent
Comment:
Reason For Exam: tailbone pain s/p fall
09/12/24 10:59
CT Head W/o Iv Contrast Urgent
Comment:
Reason For Exam: fall, head strike
09/12/24 11:04
Orthostatic VS- Treatment ONCE
09/12/24 11:22
Complete Blood Count/With Diff Urgent
Comprehensive Metabolic Panel Urgent
Troponin I Urgent
09/12/24 13:45
CARDIOLOGY CONSULT Urgent
Consulting Provider: Tino Villanueva
Was physician already notified: Yes
09/12/24 15:23
Echo 2D MMode Color/Doppler Urgent
Reason for Study: syncope
Abnormal Lab Results
09/12/24
11:22
WBC 3.6 L 10^3/uL
(4.8-10.8)
RBC 3.68 L 10^6/uL
(4.70-6.10)
Hgb 11.9 L g/dL
(13.0-18.0)
Hct 34.6 L %
(39.0-52.0)
MCH 32.3 H pg
(27.0-31.0)
Plt Count 127 L 10^3/uL
(130-400)
Absolute Lymphs (auto) 1.1 L 10^3/uL
(1.2-3.4)
Carbon Dioxide 32 H mmol/L
(22-30)
Glucose 228 H mg/dl
(70-99)
ALT 52 H U/L
(0-50)
09/12/24 11:22
09/12/24 11:22
Vital Signs
Initial and Last Documented VS:
Initial Vital Signs
Temp Pulse Resp BP Pulse Ox
97.4 F 74 16 116/80 99
09/12/24 10:13 09/12/24 10:13 09/12/24 10:13 09/12/24 10:13 09/12/24 10:13
Last Documented Vital Signs
Temp Pulse Resp BP Pulse Ox
98.3 F 68 14 124/67 98
09/12/24 18:22 09/12/24 18:22 09/12/24 18:22 09/12/24 18:22 09/12/24 18:22
Lelt;Jose Garcia PA-C - Last Filed: 09/12/24 18:57>
Orders/Labs/Results
Orders:
Orders
09/12/24 10:16
ECG [Electrocardiogram (*1)] Urgent
Reason for Study: Syncope
EKG- Treatment ONCE
09/12/24 10:58
CT Cervical Spine W/o Iv Contr Urgent
Comment:
Reason For Exam: fall, neck pain
Cardiac Monitoring- Treatment ONCE
CR Sacrum/coccyx Min 2 View Urgent
Comment:
Reason For Exam: tailbone pain s/p fall
09/12/24 10:59
CT Head W/o Iv Contrast Urgent
Comment:
Reason For Exam: fall, head strike
09/12/24 11:04
Orthostatic VS- Treatment ONCE
09/12/24 11:22
Complete Blood Count/With Diff Urgent
Comprehensive Metabolic Panel Urgent
Troponin I Urgent
09/12/24 13:45
CARDIOLOGY CONSULT Urgent
Consulting Provider: Tino Villanueva
Was physician already notified: Yes
09/12/24 15:23
Echo 2D MMode Color/Doppler Urgent
Reason for Study: syncope
Abnormal Lab Results
09/12/24
11:22
WBC 3.6 L 10^3/uL
(4.8-10.8)
RBC 3.68 L 10^6/uL
(4.70-6.10)
Hgb 11.9 L g/dL
(13.0-18.0)
Hct 34.6 L %
(39.0-52.0)
MCH 32.3 H pg
(27.0-31.0)
Plt Count 127 L 10^3/uL
(130-400)
Absolute Lymphs (auto) 1.1 L 10^3/uL
(1.2-3.4)
Carbon Dioxide 32 H mmol/L
(22-30)
Glucose 228 H mg/dl
(70-99)
ALT 52 H U/L
(0-50)
09/12/24 11:22
09/12/24 11:22
Vital Signs
Initial and Last Documented VS:
Initial Vital Signs
Temp Pulse Resp BP Pulse Ox
97.4 F 74 16 116/80 99
09/12/24 10:13 09/12/24 10:13 09/12/24 10:13 09/12/24 10:13 09/12/24 10:13
Last Documented Vital Signs
Temp Pulse Resp BP Pulse Ox
98.3 F 68 14 124/67 98
09/12/24 18:22 09/12/24 18:22 09/12/24 18:22 09/12/24 18:22 09/12/24 18:22
<Adore Miranda PA-C - Last Filed: 09/13/24 14:04>
MDM/Problems Addressed
Differential Diagnosis Includes:
69yoM here after a syncopal episode 2 days ago. Standing on a ladder when he passed out. Woke up mid fall and landed on buttocks. +Head strike. Not feeling right since then. No CP/SOB. VSS. He is well-appearing in no acute distress. No external
signs of head trauma on exam. Differential diagnosis includes but is not limited to: Cardiogenic syncope/arrhythmia, orthostatic hypotension, vasovagal episode, dehydration, concussion, intracranial hemorrhage
Initial ED plan: Check cardiac labs, EKG, CT head/cervical spine, and sacral x-rays. Will also check orthostatic vital signs.
Final assessment: Labs overall unremarkable. Hemoglobin stable. EKG shows sinus bradycardia with low voltage QRS. Troponin WNL. Imaging negative for traumatic injuries. Cardiology consulted and echocardiogram ordered. Patient signed out to Wang
aRdha LÓPEZ prior to echo results. Final disposition pending.
<Adore Miranda PA-C - Last Filed: 09/13/24 14:04>
*EKG
Interpreted by ED Provider?: Yes
EKG Intrepretation Date: 09/12/24
Heart Rate: 58
Rate: bradycardiac
Rhythm: sinus
[place]: normal axis
Interval: normal interval
QRS Pattern: low voltage
Ischemia: no ischemia
<Jose Garcia PA-C - Last Filed: 09/12/24 18:57>
*Critical Care Note
Total Time (30-74mins, 75-104mins- exclusive of procedures): Not Applicable
<Jose Garcia PA-C - Last Filed: 09/12/24 18:57>
Patient Management
Discussion with other providers: Addresser
Escalation/DeEscalation of care consider admission/obs:
5 PM: Patient was received in signout pending echocardiogram and cardiology consultation. Patient's echocardiogram without any significant emergent findings. Mild valvular disease noted. Seen by cardiology who feels patient can be treated as an
outpatient. 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 Patient aware of return precautions. Discussed nonemergent cervical spine findings and need for close outpatient
follow-up. Patient aware of return precautions to the ER.
ED Attending Note
<Adore Miranda PA-C - Last Filed: 09/13/24 14:04>
-
Portions of this chart may have been created with voice recognition software.� Occasional wrong word or��sound alike� substitutions may have occurred due to the inherent limitations of voice recognition software.
Discharge Plan
Departure
Patient Disposition: Home (Routine Discharge)
Date of Disposition: 09/12/24
Time of Disposition: 17:25
Patient with high blood pressure during this ER visit?: No
Discharge Problem:
Syncope, Degenerative disk disease
Instructions: Syncope (Fainting) (DC)
Prescriptions:
No Action
sertraline 100 MG tablet
200 mg PO DAILY
trazodone 100 MG tablet
100 mg PO HS
lisinopril 5 MG tablet
5 mg PO DAILY
diazepam 10 MG tablet
5 mg PO BID
metformin 500 mg Tablet
500 mg PO BID Qty: 0
atorvastatin 80 mg Tablet
80 mg PO QPM
cyanocobalamin (vitamin B-12) 1,000 mcg Tablet
1,000 mcg PO DAILY
bupropion HCl 100 mg Tablet Sustained-Release 12 Hr
100 mg PO DAILY
glipizide 5 mg Tablet
5 mg PO BID
amoxicillin-pot clavulanate 875-125 mg tablet
1 tab PO BID Qty: 14 0RF
Referrals:
Torey Rodríguez DO [Family Provider] -
Tino Villanueva MD [Active] - (Cardiology)
Interventions
Interventions:
*Risk Screen - Suicide Last Done: 09/12/24 11:18
*General Assessment Last Done: 09/12/24 11:14
*Neglect/Abuse Screening Last Done: 09/12/24 11:20
*ED- Fall Risk Assessment Last Done: 09/12/24 11:14
*ED COVID-19 Vaccine History Last Done: 09/12/24 11:14
*Nursing Disposition Last Done: 09/12/24 18:22
ED- Cardiac Assessment Last Done: 09/12/24 11:14
ED-Musculoskeletal Assessment Last Done: 09/12/24 11:14
ED- Neurological Assessment Last Done: 09/12/24 11:14
ED-Skin Assessment Last Done: 09/12/24 11:14
Discharge Date and Time
Discharge Date/Time: 09/12/24 18:10
Print Language: [id number]
[2024-09-12 11:31] LABS: % Basophils 0.8 % (0-2); % Eosinophils 4.5 % (0-6); % Immature Granulocytes 0.3 % (0-0.5); % Lymphocytes 30.7 % (20.5-51.1); % Monocytes 5.1 % (1.7-9.3); % Neutrophils 58.6 % (42.2-75.2); Absolute Eosinophils 0.2 10^3/uL (0-0.7); Absolute Lymphocytes 1.1 10^3/uL (1.2-3.4); Absolute Monocytes 0.2 10^3/uL (0.1-0.6); Absolute Neutrophils 2.1 10^3/uL (1.4-6.5); Hematocrit 34.6 % (39.0-52.0); Hemoglobin 11.9 g/dL (13.0-18.0); Mean Corp Hgb Conc. 34.4 g/dL (33.0-37.0); Mean Corpuscular Hgb 32.3 pg (27.0-31.0); Mean Platelet Volume 9.9 fL (7.4-10.4); Nucleated Red Blood Cells % 0 % (-); Platelet Count 127 10^3/uL (130-400); Red Blood Cell Count 3.68 10^6/uL (4.70-6.10); Red Cell Dist. Width 12.9 % (11.5-14.5); White Blood Cell Count 3.6 10^3/uL (4.8-10.8)
[2024-09-12 11:42] LABS: ALT (SGPT) 52 U/L (0-50); AST (SGOT) 30 U/L (17-59); Alkaline Phosphatase 48 U/L (38-126); Blood Urea Nitrogen 14 mg/dl (9-20); Calcium 9.3 mg/dl (8.4-10.2); Carbon Dioxide 32 mmol/L (22-30); Chloride 100 mmol/L (98-107); Estimated Creatinine Clearance 96 ml/min; Glucose 228 mg/dl (70-99); Potassium 4.3 mmol/L (3.5-5.1); Sodium 137 mmol/L (135-145); Total Bilirubin 0.9 mg/dl (0.2-1.3); Total Protein 6.6 g/dl (6.3-8.2); eGFR > 60.00
[2024-09-12 12:10] LABS: Troponin I < 0.012 ng/ml
--- NOTE | 2024-09-12 14:33 | CON.CAR ---
Consultation
Consultation Request
Date/Time Consultation Requested: 09/12/2024
Date/Time Consultation Performed: 09/12/2024, 1530
Requesting Provider: Adore Miranda PA-C
Performing Provider: ROSAS Segovia for Dr. Villanueva
Reason for Consultation: Syncope
Medical History
-
Chief Complaint: syncope
History of Present Illness:
69-year-old male with history of hypertension, hyperlipidemia, type 2 diabetes, diverticulitis, DES presented to ED today for evaluation of a syncopal episode 2 days ago. Patient was standing on a ladder painting when he lost consciousness,
remembers waking up as he was falling down off the ladder. He fell 2-3 feet onto his buttocks and subsequently hit his head. He has felt that his head is not right since the fall, and came to the ED today for evaluation. He denies feeling poorly
prior to the episode and denies any dizziness, lightheadedness, palpitations. He had a similar episode also while painting on a ladder about 6 months ago. He has had no other episodes of syncope. He reports he has not been as active recently
with walking and that he loses balance when walking but can catch himself. He has not had any falls.
Denies chest pain, shortness of breath, palpitations, lightheadedness, edema, PND, orthopnea.
denies history of PR/CAD/CAD/CVA
Does not have a nurse sane, reports having an echo and a stress test many years ago.
Past medical history:
Type 2 diabetes
Hypertension
Hyperlipidemia
Depression
anxiety
obstructive sleep apnea on CPAP
ED evaluation: Head CT: No acute intracranial hemorrhage or transcortical infarct, mild to moderate diffuse cerebral and cerebellar volume loss
EKG: Sinus bradycardia, low voltage, IVCD, no change compared to 04/10/2024 EKG
Labs:
Hemoglobin 11.9, BUN/creatinine 14/0.8, NA 137, K4.3, troponin less than 0.012
Past Medical History
Past Medical History: Other (As above)
Past Surgical History: Other (Hernia surgery)
Social History
Tobacco: Former Smoker (Quit in 1978)
Alcohol: Occasional (Rare, approximately 1 sixpack of beer per year)
Drug: None
Personal:
Living: With Family
Employment: Retired
Family History
Family History: Other (Father with CABG x 4, mother with dementia, no family history of syncope)
Allergies / Home Medications
Allergy/AdvReac Type Severity Reaction Status Date / Time
No Known Allergies Allergy Verified 09/12/24 10:16
�Medication �Instructions �Recorded �Confirmed �Type
diazepam 10 mg tablet 5 mg PO BID Mental Health/Anxiety 05/12/17 04/11/24 History
lisinopril 5 mg tablet 5 mg PO DAILY Blood Pressure 05/12/17 04/11/24 History
sertraline 100 mg tablet 200 mg PO DAILY Mental 05/12/17 04/11/24 History
Health/Anxiety
trazodone 100 mg tablet 100 mg PO HS Mental Health/Anxiety 05/12/17 04/11/24 History
metformin 500 mg tablet 500 mg PO BID Diabetes ##0 11/21/17 04/11/24 History
atorvastatin 80 mg tablet 80 mg PO QPM High Cholesterol 04/11/24 04/11/24 History
bupropion HCl 100 mg tablet,12 hr 100 mg PO DAILY Mental 04/11/24 04/11/24 History
sustained-release Health/Anxiety
cyanocobalamin (vitamin B-12) 1,000 mcg PO DAILY Supplement 04/11/24 04/11/24 History
1,000 mcg tablet
glipizide 5 mg tablet 5 mg PO BID Diabetes 04/11/24 04/11/24 History
amoxicillin 875 mg-potassium 1 tab PO BID #14 tabs 04/13/24 Rx
clavulanate 125 mg tablet
Review of Systems
-
History Source: Patient
Constitutional: No Symptoms
Physical Exam
Vital Signs
Temp Pulse Resp BP Pulse Ox
97.4 F 60 12 107/71 99
09/12/24 10:13 09/12/24 11:10 09/12/24 11:10 09/12/24 11:10 09/12/24 10:13
Lab Results
09/12/24 11:22
09/12/24 11:22
Troponin I < 0.012 ng/ml 09/12/24 11:22
GEN: No distress, awake, Ox3
HEENT: supple, anicteric, mmm
LUNGS: CTA, no wheezes/rales
CV: Reg, S1/S2, no murmur
ABD: soft, BS+, NT/ND
EXT: No edema
NEURO: Gross non-focal
SKIN: No rash
Impression / Plan
-
PCP: Dr. Rodríguez
Does not see nurse sane
Impression:
Syncope with fall
Hypertension
Hyperlipidemia
Obstructive sleep apnea
Type 2 diabetes
Depression
Anxiety
Previous cardiovascular testing:
Patient reports having echo and stress test in distant past. We do not have reports.
EKG 09/12/2024: Sinus bradycardia, IVCD, low voltage
Plan:
69-year-old male with history of hypertension, hyperlipidemia, type 2 diabetes, diverticulitis, DES presented to ED today for evaluation of a syncopal episode 2 days ago. Patient was standing on a ladder painting when he lost consciousness,
remembers waking up as he was falling down off the ladder. He fell 2-3 feet onto his buttocks and subsequently hit his head. He has felt that his head is not right since the fall, and came to the ED today for evaluation. He denies feeling poorly
prior to the episode and denies any dizziness, lightheadedness, palpitations. He had a similar episode also while painting on a ladder about 6 months ago. He has had no other episodes of syncope. He reports he has not been as active recently with
walking and that he loses balance when walking but can catch himself. He has not had any falls.
Denies chest pain, shortness of breath, palpitations, lightheadedness, edema, PND, orthopnea.
-Both episodes of syncope he has had, episode 2 days ago and past episode approximate 6 months ago, have occurred when he is standing on a ladder painting. He has no prodrome. EKG shows normal sinus rhythm. No symptoms of palpitations.
-Would check echocardiogram to ensure a structurally normal heart
-Outpatient cardiac monitor technician to assess for arrhythmogenic cause
-Check orthostatic blood pressures
-Hemoglobin normal
-K 4.3
-Blood pressure borderline low but in same range as at past visits at
Data Reviewed
-
EKG: Tracing Personally Visualized and interpreted
Labs: Labs Reviewed by me
--- NOTE | 2024-09-12 18:19 | EDRN ---
Reviewed discharge instructions with patient. Verbalized understanding. Taken to lobby in wheelchair.
== END 2024-09-12 18:10 | disposition home or self-care (01) ==
LOC: EMR 10:12
PROVIDERS: Physician Assistant; CONSULT PHYSICIAN Internal Medicine Cardiovascular Disease; EMERGENCY PHYSICIAN Student in an Organized Health Care Education/Training Program; FAMILY PHYSICIAN Family Medicine
DX: R55 Syncope and collapse (principal); M53.3 Sacrococcygeal disorders, not elsewhere classified; W11.XXXA Fall on and from ladder, initial encounter; E11.9 Type 2 diabetes mellitus without complications; E78.00 Pure hypercholesterolemia, unspecified; K58.9 Irritable bowel syndrome, unspecified; I38 Endocarditis, valve unspecified; K57.92 Diverticulitis of intestine, part unspecified, without perforation or abscess without bleeding; G47.33 Obstructive sleep apnea (adult) (pediatric); F32.A Depression, unspecified; F41.9 Anxiety disorder, unspecified; I10 Essential (primary) hypertension; Z87.891 Personal history of nicotine dependence
CPT/HCPCS: 99285; 70450; 72125; 72220; 80053; 84484; 85025; 93005; 93306

== ENCOUNTER → 2025-05-21 11:27 | Outpatient (REF) | payer MEDICARE, OTHER, SELFPAY ==
[2025-05-21 12:09] LABS: Hematocrit 35.4 % (39.0-52.0); Hemoglobin 11.7 g/dL (13.0-18.0); Mean Corp Hgb Conc. 33.1 g/dL (33.0-37.0); Mean Corpuscular Volume 93.7 fL (80.0-94.0); Nucleated Red Blood Cells % 0 % (-); Platelet Count 114 10^3/uL (130-400); Red Cell Dist. Width 12.4 % (11.5-14.5)
[2025-05-21 12:56] LABS: ALT (SGPT) 28 U/L (0-50); AST (SGOT) 19 U/L (17-59); Albumin 4.0 g/dl (3.5-5.0); Alkaline Phosphatase 62 U/L (38-126); Blood Urea Nitrogen 15 mg/dl (9-20); Calcium 9.1 mg/dl (8.4-10.2); Carbon Dioxide 32 mmol/L (22-30); Chloride 99 mmol/L (98-107); Glucose 376 mg/dl (70-99); Potassium 5.0 mmol/L (3.5-5.1); Sodium 133 mmol/L (135-145); Total Protein 6.9 g/dl (6.3-8.2); eGFR > 60.00
[2025-05-21 14:21] LABS: Glycohemoglobin (HgbA1c) 8.6 % (4.0-5.9)
== END ==
LOC: REG 11:27
PROVIDERS: ATTENDING PHYSICIAN Physician Assistant; FAMILY PHYSICIAN Family Medicine
DX: E11.65 Type 2 diabetes mellitus with hyperglycemia (principal)
CPT/HCPCS: 36415; 80053; 83036; 85025